=== PATIENT | male | born 1955 | race Caucasian/White ===

== ENCOUNTER 2022-01-31 09:15 | Outpatient (CLI) | payer MEDICARE ==
[2022-01-31 14:32] LABS: BASOPHILS % (AUTO) 0.3 %; EOSINOPHILS # (AUTO) 0.2 10^3/uL (0.0-0.7); EOSINOPHILS % (AUTO) 1.7 %; HCT - HEMATOCRIT 46.6 % (42.0-52.0); HGB - HEMOGLOBIN 14.6 g/dL (14.0-18.0); LYMPHOCYTES # (AUTO) 1.1 10^3/uL (1.5-3.5); LYMPHOCYTES % (AUTO) 11.6 %; MEAN CORPUSCULAR HEMOGLOBIN 28.8 pg (27.0-31.0); MEAN CORPUSCULAR HGB CONC 31.3 g/dL (32.0-36.0); MEAN CORPUSCULAR VOLUME 91.9 fL (80.0-94.0); MEAN PLATELET VOLUME 11.3 fL (7.4-11.4); MONOCYTES # (AUTO) 0.8 10^3/uL (0.0-1.0); MONOCYTES % (AUTO) 8.3 %; NEUTROPHILS # (AUTO) 7.3 10^3/uL (1.5-6.6); NEUTROPHILS % (AUTO) 77.8 %; PLT - PLATELET COUNT 205 10^3/uL (130-450); RED BLOOD COUNT 5.07 10^6/uL (4.70-6.10); RED CELL DISTRIBUTION WIDTH 13.5 % (12.0-15.0); WHITE BLOOD COUNT 9.4 x10^3/uL (4.8-10.8)
[2022-01-31 14:33] LABS: BILIRUBIN,URINE NEGATIVE (NEGATIVE); GLUCOSE, URINE (UA) >=1000 mg/dL (NEGATIVE); KETONES,URINE (UA) NEGATIVE (NEGATIVE); LEUKOCYTE ESTERASE, URINE TRACE (NEGATIVE); NITRITE,URINE POSITIVE (NEGATIVE); OCCULT BLOOD,URINE NEGATIVE (NEGATIVE); PH,URINE 5.5 PH (5.0-7.5); PROTEIN,URINE NEGATIVE (NEGATIVE); UROBILINOGEN,URINE 0.2 (NORMAL) E.U./dL (NORMAL)
[2022-01-31 14:35] LABS: CLARITY,URINE SL. CLOUDY (CLEAR)
[2022-01-31 14:52] LABS: BACTERIA,URINE Moderate /HPF (None Seen); RBC,URINE 0-5 /HPF (0-5); SQUAMOUS EPITHELIAL CELL,UR RARE Squamous (<= Few); WBC CLUMPS,URINE PRESENT; WBC,URINE >25 /HPF (0-3)
[2022-01-31 14:55] LABS: MICROALBUM/CREATININE RATIO,UR 26.2 ug/mg (<30.0); MICROALBUMIN,URINE 2.2 mg/dL (0-300.0)
[2022-01-31 15:34] LABS: ALBUMIN/GLOBULIN RATIO 1.3 (1.0-2.2); ALKALINE PHOSPHATASE 66 IU/L (42-121); ALT ALANINE AMINOTRANSFERASE 13 IU/L (10-60); AST ASPARTATE AMINOTRANSFERASE 18 IU/L (10-42); BILIRUBIN,TOTAL 0.8 mg/dL (0.2-1.0); BUN - BLOOD UREA NITROGEN 17 mg/dL (6-20); CALCIUM 9.4 mg/dL (8.5-10.3); CARBON DIOXIDE - CO2 30 mmol/L (21-32); CHLORIDE 97 mmol/L (101-111); CHOL/HDL RATIO 2.4 (<5.0); CHOLESTEROL 91 mg/dL; CREATININE 1.1 mg/dL (0.6-1.2); GAMMA GLUTAMYL TRANSPEPTIDASE 11 IU/L (8-55); GFR - MDRD 67 (>89); GLUCOSE 161 mg/dL (70-100); HDL CHOLESTEROL 38 mg/dL; LDL CHOLESTEROL,CALCULATED 34 mg/dL; LDL/HDL RATIO 0.9 (<3.6); POTASSIUM 4.7 mmol/L (3.5-5.0); SODIUM 137 mmol/L (135-145); TOTAL PROTEIN 7.2 g/dL (6.7-8.2); TRIGLYCERIDES 94 mg/dL; VLDL CHOLESTEROL 19 mg/dL
[2022-01-31 15:39] LABS: ESTIMATED AVERAGE GLUCOSE 197 mg/dL (70-100); HEMOGLOBIN A1c% 8.5 % (4.27-6.07)
== END 2022-01-31 09:16 | disposition home or self-care (01) ==
LOC: LAB.S 09:15
PROVIDERS: ATTEND Nurse Practitioner Family
DX: E11.9 Type 2 diabetes mellitus without complications (principal); F10.10 Alcohol abuse, uncomplicated
CPT/HCPCS: 36415; 80053; 80061; 81001; 81003; 82043; 82570; 82977; 83036; 83721; 85025; 87077; 87086; 87181

== ENCOUNTER 2022-02-27 08:00 | Outpatient (CLI) | payer MEDICARE | END 2022-02-27 23:59 | disposition home or self-care (01) | LOC: LAB 08:00 | PROVIDERS: ATTEND Physician Assistant | DX: N30.00 Acute cystitis without hematuria (principal) | CPT/HCPCS: 87077; 87086; 87181 ==

== ENCOUNTER → 2022-02-27 | Outpatient (CLI) | payer MEDICARE | LOC: LAB.S 08:00 | PROVIDERS: ATTEND Physician Assistant | DX: N30.00 Acute cystitis without hematuria (principal); E11.9 Type 2 diabetes mellitus without complications | CPT/HCPCS: 82962 ==

== ENCOUNTER 2022-03-05 22:50 | Emergency (ER) | payer MEDICARE ==
[2022-03-05 23:58] LABS: BASOPHILS % (AUTO) 0.2 %; EOSINOPHILS # (AUTO) 0.1 10^3/uL (0.0-0.7); EOSINOPHILS % (AUTO) 0.8 %; HCT - HEMATOCRIT 45.9 % (42.0-52.0); HGB - HEMOGLOBIN 14.5 g/dL (14.0-18.0); LYMPHOCYTES # (AUTO) 0.8 10^3/uL (1.5-3.5); LYMPHOCYTES % (AUTO) 5.8 %; MEAN CORPUSCULAR HEMOGLOBIN 28.6 pg (27.0-31.0); MEAN CORPUSCULAR HGB CONC 31.6 g/dL (32.0-36.0); MEAN CORPUSCULAR VOLUME 90.5 fL (80.0-94.0); MEAN PLATELET VOLUME 10.2 fL (7.4-11.4); MONOCYTES % (AUTO) 7.5 %; NEUTROPHILS # (AUTO) 11.8 10^3/uL (1.5-6.6); NEUTROPHILS % (AUTO) 85.3 %; PLT - PLATELET COUNT 196 10^3/uL (130-450); RED BLOOD COUNT 5.07 10^6/uL (4.70-6.10); RED CELL DISTRIBUTION WIDTH 13.7 % (12.0-15.0); WHITE BLOOD COUNT 13.8 x10^3/uL (4.8-10.8)
--- NOTE | 2022-03-06 00:01 | ED Physician Documentation ---
History of Present Illness - Stated complaint Stated Complaint: ABD & INCREASING CHEST PAIN - Chief complaint Chief Complaint: Abd Pain - History obtained from History obtained from: Patient, Family () - Additonal information Additional information: 66yM with pmh dm, [place] s/p cabg 2016, p/w gradual onset epigastric pain starting after lunch with bloating/pressure sensation that has been constant, radiating to back and up to chest, 09/23 at present. had been feeling normal prior to this. does not feel like prior [place] Review of Systems Ten Systems: 10 systems reviewed and negative Constitutional: denies: Fever Cardiac: reports: Chest pain / pressure Respiratory: denies: Dyspnea GI: reports: Abdominal Pain Musculoskeletal: reports: Back pain PD PAST MEDICAL HISTORY - Allergies Allergies/Adverse Reactions: Allergies Allergy/AdvReac Type Severity Reaction Status Date / Time No Known Drug Allergies Allergy Verified 03/05/22 23:35 PD ED PE NORMAL - Vitals Vital signs reviewed: Yes - General General: Alert and oriented X 3, Well developed/nourished, Other (uncomfortable appearing) - HEENT HEENT: Atraumatic, PERRL, EOMI, Moist mucous membranes - Neck Neck: Supple, no meningeal sign - Cardiac Cardiac: RRR - Respiratory Respiratory: No respiratory distress, Clear bilaterally - Abdomen Abdomen: Other (diffuse discomfort to palpation. mildly distended) - Derm Derm: Normal color, Warm and dry - Extremities Extremities: No deformity, Other (2+ pulses all four extremities) - Neuro Neuro: Alert and oriented X 3, No motor deficit, No sensory deficit - Psych Psych: Normal mood, Normal affect Results - Vitals Vitals: Vital Signs - 24 hr 03/05/22 03/06/22 03/06/22 23:09 00:15 00:22 Temperature 36.8 C Heart Rate 60 65 66 Respiratory 20 15 14 Rate Blood Pressure 176/72 H 169/78 H 169/78 H O2 Saturation 93 96 93 03/06/22 03/06/22 01:15 01:43 Temperature Heart Rate 69 69 Respiratory 13 14 Rate Blood Pressure 157/78 H 163/67 H O2 Saturation 94 94 Oxygen O2 Source Room air - EKG (time done) 2321 Rate: Rate (enter#) (61) Rhythm: NSR - Labs Labs: Laboratory Tests 03/05/22 03/05/22 03/05/22 23:50 23:50 23:50 WBC 13.8 H RBC 5.07 Hgb 14.5 Hct 45.9 MCV 90.5 MCH 28.6 MCHC 31.6 L RDW 13.7 Plt Count 196 MPV 10.2 Neut # (Auto) 11.8 H Lymph # (Auto) 0.8 L [place] # (Auto) 1.0 Eos # (Auto) 0.1 Baso # (Auto) 0.0 Absolute Nucleated RBC 0.00 Nucleated RBC % 0.0 Sodium 135 Potassium 4.2 Chloride 97 L Carbon Dioxide 28 Anion Gap 10.0 BUN 17 Creatinine 1.0 Estimated GFR (MDRD) 75 L Glucose 188 H Calcium 9.0 Total Bilirubin 0.6 AST 16 ALT 13 Alkaline Phosphatase 68 Troponin I High Sens 10.8 Total Protein 7.1 Albumin 3.8 Globulin 3.3 Albumin/Globulin Ratio 1.2 Lipase 26 Nasal Adenovirus (PCR) Nasal B. parapertussis DNA (PCR) Nasal Coronavir 229E PCR Nasal Coronavir HKU1 PCR Nasal Coronavir NL63 PCR Nasal Coronavir OC43 PCR Nasal Enterovir/Rhinovir PCR Nasal Influenza B PCR Nasal Influenza A PCR Nasal Parainfluen 1 PCR Nasal Parainfluen 2 PCR Nasal Parainfluen 3 PCR Nasal Parainfluen 4 PCR Nasal RSV (PCR) Nasal B.pertussis DNA PCR Nasal C.pneumoniae (PCR) Ken Human Metapneumo PCR Nasal M.pneumoniae (PCR) Nasal SARS-CoV-2 (PCR) 03/06/22 00:30 WBC RBC Hgb Hct MCV MCH MCHC RDW Plt Count MPV Neut # (Auto) Lymph # (Auto) [place] # (Auto) Eos # (Auto) Baso # (Auto) Absolute Nucleated RBC Nucleated RBC % Sodium Potassium Chloride Carbon Dioxide Anion Gap BUN Creatinine Estimated GFR (MDRD) Glucose Calcium Total Bilirubin AST ALT Alkaline Phosphatase Troponin I High Sens Total Protein Albumin Globulin Albumin/Globulin Ratio Lipase Nasal Adenovirus (PCR) NOT DETECTED Nasal B. parapertussis DNA (PCR) NOT DETECTED Nasal Coronavir 229E PCR NOT DETECTED Nasal Coronavir HKU1 PCR NOT DETECTED Nasal Coronavir NL63 PCR NOT DETECTED Nasal Coronavir OC43 PCR NOT DETECTED Nasal Enterovir/Rhinovir PCR NOT DETECTED Nasal Influenza B PCR NOT DETECTED Nasal Influenza A PCR NOT DETECTED Nasal Parainfluen 1 PCR NOT DETECTED Nasal Parainfluen 2 PCR NOT DETECTED Nasal Parainfluen 3 PCR NOT DETECTED Nasal Parainfluen 4 PCR NOT DETECTED Nasal RSV (PCR) NOT DETECTED Nasal B.pertussis DNA PCR NOT DETECTED Nasal C.pneumoniae (PCR) NOT DETECTED Ken Human Metapneumo PCR NOT DETECTED Nasal M.pneumoniae (PCR) NOT DETECTED Nasal SARS-CoV-2 (PCR) NOT DETECTED PD Medical Decision Making - ED course ED course: 66yM with pmh cad s/p cabg p/w cp, abd pain, back pain since after lunch today. will undertake aortic dissection study given significant pain and pattern on the body. Patient feeling better s/p pepcid and morphine. incidental findings discussed with patient. plan to f/u with pcp. return precautions given. Departure - Departure Disposition: 01 Home, Self Care Clinical Impression: Abdominal pain, Back pain, Chest pain Condition: Stable Instructions: ED Chest Pain Atypical Unkn Cause Comments: He was seen in the emergency for evaluation of chest pain, abdominal pain and back pain. Here blood work, EKG, chest x-ray, and CTs did not uncover an emergent cause for your symptoms. You should follow-up with your primary care provider regarding your adrenal nodules and right pleural effusion and possible mass, found on CT. Return to the emergency department if you have any new or worsening symptoms or other concerns.
[2022-03-06] MEDS: FAMOTIDINE 20 MG/2 ML VIAL IVP STA (00:07)
[2022-03-06] MEDS: MORPHINE 2 MG/ML CARPUJECT IVP STA (00:09)
[2022-03-06] MEDS ORDERED: iohexoL-300 100 ML VIAL ONE (00:11)
[2022-03-06 00:16] LABS: ALBUMIN 3.8 g/dL (3.2-5.5); ALBUMIN/GLOBULIN RATIO 1.2 (1.0-2.2); BILIRUBIN,TOTAL 0.6 mg/dL (0.2-1.0); POTASSIUM 4.2 mmol/L (3.5-5.0); TOTAL PROTEIN 7.1 g/dL (6.7-8.2)
[2022-03-06] MEDS: SODIUM CHLORIDE 0.9% 1,000 ML IV STA (00:17)
--- NOTE | 2022-03-06 00:36 | XRAY Report ---
PROCEDURE: Chest 1 View X-Ray INDICATIONS: Chest pain TECHNIQUE: One view of the chest was acquired. COMPARISON: None. FINDINGS: Surgical changes and devices: Multiple median sternotomy wires are present. Lungs and pleura: There is a small right pleural effusion with right basilar opacities consistent wi th compressive atelectasis or consolidation. Left lung is clear. No pneumothorax. Mediastinum: Mediastinal contours appear normal. Heart size is normal. Bones and chest wall: No suspicious bony lesions. Overlying soft tissues appear unremarkable. IMPRESSION: 1. Small right pleural effusion with right basilar compressive atelectasis or consolidation. Reviewed by: Wilberto Dent MD on 03/06/2022 12:44 AM PST Approved by: Wilberto Dent MD on 03/06/2022 12:44 AM PST Station ID: [id number]
[2022-03-06 01:25] LABS: B. PARAPERTUSSIS- RESP PCR PAN NOT DETECTED; B. PERTUSSIS- RESP PCR PANEL NOT DETECTED; C. PNEUMONIAE- RESP PCR PANEL NOT DETECTED; CORONAVIRUS 229E-RESP PCR NOT DETECTED; CORONAVIRUS HKU1-RESP PCR NOT DETECTED; CORONAVIRUS NL63-RESP PCR NOT DETECTED; CORONAVIRUS OC43-RESP PCR NOT DETECTED; HUMAN METAPNEUMOVIRUS NOT DETECTED; INFLUENZA A- RESP PCR PANEL NOT DETECTED; INFLUENZA B - RESP PCR PANEL NOT DETECTED; M. PNEUMONIAE- RESP PCR PANEL NOT DETECTED; PARAINFLUENZA VIRUS 1 NOT DETECTED; PARAINFLUENZA VIRUS 2 NOT DETECTED; PARAINFLUENZA VIRUS 3 NOT DETECTED; PARAINFLUENZA VIRUS 4 NOT DETECTED; RHINOVIRUS/ENTEROVIRUS NOT DETECTED; RSV- RESP PCR PANEL NOT DETECTED; SARS-CoV-2 -RESP PCR PANEL NOT DETECTED
--- NOTE | 2022-03-06 02:08 | CT Report ---
PROCEDURE: ANGIO CHEST W/WO INDICATIONS: chest pain radiating to back and abdomen CONTRAST: Omni 300 100ml TECHNIQUE: After the administration of intravenous contrast, 2 mm axial images were acquired from the pulmonary apices to the posterior costophrenic angles during the arterial phase. In addition, 1 mm lung kernel and 5 mm soft tissue kernel reconstructions were performed. 3-dimensional coronal oblique maximum int ensity projection (MIP) reformats, 8 mm axial MIP, and 5 mm coronal and sagittal MPR reformats were t hen performed through the thorax. For radiation dose reduction, the following was used: automated exp osure control, adjustment of mA and/or kV according to patient size. COMPARISON: Concurrent CT angiogram of the abdomen FINDINGS: Image quality: Excellent. Aorta: There is a prosthetic aortic valve. The thoracic aorta is normal in caliber and contour withou t intimal flaps to suggest dissection. There is aortic wall thickening within the descending aorta T here is conventional branching of the aortic arch. The visualized great vessels are normal in calibe r and appear patent. Lower Neck: No lymphadenopathy by size criteria. Thyroid: Visualized thyroid demonstrates no discrete nodules. Axillae: No lymphadenopathy by size criteria. Chest Wall: Unremarkable. Bones: Visualized osseous structures demonstrate no suspicious lesions. Lungs and Airways: The small region of, consolidation is demonstrated posteriorly in the right lower lobe with adjacent linear areas of scarring. The findings likely represent round atelectasis. Mild sc arring and atelectasis also demonstrated elsewhere within the right lung. Minimal dependent atelectas is demonstrated in the left lung. No suspicious pulmonary nodules. The trachea and central airways ar e patent. Pleura: No pneumothorax. There is a small loculated right pleural effusion with associated pleural th ickening. Heart: Heart size is normal. No pericardial effusion. Thoracic Vessels: The pulmonary arteries demonstrate no filling defects to suggest central pulmonary embolism. There is enlargement of the pulmonary arteries, with the main pulmonary artery measuring up to 3.6 cm suggestive of pulmonary arterial hypertension. Mediastinum and Myrna: No lymphadenopathy by size criteria. Esophagus: No wall thickening. No hiatal hernia. Abdomen: Visualized upper abdomen demonstrates an indeterminate right adrenal nodule measuring up to 1.6 cm. IMPRESSION: 1. No evidence of aneurysm or dissection within the thoracic aorta. 2. No evidence of central pulmonary embolism. 3. Small loculated right pleural effusion with associated pleural thickening. 4. Confluent region of consolidation posteriorly in the right lower lobe along the pleural fluid with adjacent areas of scarring. The findings are suggestive of chronic round atelectasis. The differenti al includes pneumonia or a neoplastic mass which is considered less likely. Recommend comparison with prior outside studies or follow-up evaluation in 3 months to demonstrate stability or resolution. Reviewed by: Wilberto Cantu MD on 03/06/2022 2:17 AM PST Approved by: Wilberto Cantu MD on 03/06/2022 2:17 AM PST Station ID: [id number]
--- NOTE | 2022-03-06 02:17 | CT Report ---
PROCEDURE: ANGIO ABDOMEN/PELVIS W INDICATIONS: abd pain CONTRAST: Omni 300 100ml TECHNIQUE: After the administration of intravenous contrast, 2.5 mm thick sections acquired from the diaphragm t o the symphysis. 10 mm maximum-intensity projection (MIP) reformats were then acquired. For radiati on dose reduction, the following was used: automated exposure control, adjustment of mA and/or kV ac cording to patient size. COMPARISON: Concurrent CT angiogram of the thorax FINDINGS: Image quality: Excellent. Aorta: The abdominal aorta is normal in caliber and contour. No intimal flaps to suggest dissection. There is mild scattered atherosclerotic vascular calcification. Mesenteric arteries: Celiac trunk, superior and inferior mesenteric arteries appear patent. There ar e 2 accessory left renal arteries. The renal arteries appear patent bilaterally. Right pelvic arteries: The common, external, and internal iliac arteries appear patent. Mild scatter ed calcified plaque is demonstrated along the internal iliac artery with areas of mild narrowing. The common femoral artery as well as the visualized proximal superficial femoral artery and deep femoral artery appear patent. Left pelvic arteries: The common, external, and internal iliac arteries appear patent. Mild scattere d calcified plaque is demonstrated along the internal iliac artery with areas of mild narrowing. The common femoral artery as well as the visualized proximal superficial femoral artery and deep femoral artery appear patent. Extravascular soft tissues: Lung bases:There is a small loculated right pleural effusion with associated pleural thickening. A c onfluent region of consolidation is demonstrated in the right lower lobe with adjacent linear areas o f scarring suggestive of chronic round atelectasis. Heart: Heart is normal in size. ABDOMEN: Liver: No mass lesion. Gallbladder:The gallbladder is distended with mild pericholecystic fat stranding. No calcified galls tones or definite gallbladder wall thickening. Biliary ducts: No biliary ductal dilatation. Pancreas: Unremarkable. Spleen: Normal in size. Adrenal Glands: There is a right adrenal nodule measuring up to 1.6 cm with indeterminate attenuatio n values. Kidneys and Ureters: No hydronephrosis. Stomach and Bowel: Stomach, small bowel loops, and colon are normal in caliber and wall thickness. T he appendix is normal in appearance. Peritoneum: No abnormal intraperitoneal fluid. No free air. Ventral Wall: No hernia. Abdominal Nodes: No retroperitoneal or mesenteric adenopathy by size criteria. Vessels: Aorta and inferior vena cava are normal in size. PELVIS: Pelvic Organs: Unremarkable. Bladder: Unremarkable. Pelvic Nodes: No enlarged lymph nodes. Miscellaneous: There is a penile prosthesis with a reservoir anteriorly in the left hemipelvis. There is a small fat-containing right inguinal hernia. Bones: Visualized osseous structures demonstrate no suspicious focal lesions. IMPRESSION: 1. No aneurysm or dissection of the abdominal aorta. 2. Indeterminate right adrenal nodule. Further evaluation may obtained with an adrenal protocol CT or MRI if clinically indicated. 3. Distention of the gallbladder with mild pericholecystic fat stranding but no evidence of calcified gallstones or wall thickening. The findings are equivocal but if there is clinical suspicion for cho lecystitis, further evaluation may be obtained with ultrasound. 4. Small loculated pleural effusion within the visualized right lung base. Reviewed by: Wilberto Dent MD on 03/06/2022 2:25 AM PST Approved by: Wilberto Dent MD on 03/06/2022 2:25 AM PST Station ID: [id number]
[2022-03-06 03:06] VITALS: BP 150/65
[2022-03-06] MEDS: iohexoL-300 100 ML VIAL IVP ONE (04:43)
== END 2022-03-06 03:07 | disposition home or self-care (01) ==
LOC: ED 22:50
DX: R10.13 Epigastric pain (principal); R07.9 Chest pain, unspecified; M54.9 Dorsalgia, unspecified
CPT/HCPCS: 36415; 71045; 71275; 74174; 80053; 83690; 84484; 85025; 87633; 93005; 96374; 96375; 99282; 99284; Q9967

== ENCOUNTER 2022-10-05 19:50 | Outpatient (CLI) | payer MEDICARE | END 2022-10-05 23:59 | disposition EMS.NT | LOC: EMS 19:50 | DX: E11.649 Type 2 diabetes mellitus with hypoglycemia without coma (principal); Z79.4 Long term (current) use of insulin ==

== ENCOUNTER 2023-06-15 13:07 | Outpatient (CLI) | payer MEDICARE | END 2023-06-15 23:59 | disposition critical access hospital (66) | LOC: EMS 13:07 | DX: E11.649 Type 2 diabetes mellitus with hypoglycemia without coma (principal); I44.7 Left bundle-branch block, unspecified; R41.82 Altered mental status, unspecified; R61 Generalized hyperhidrosis | CPT/HCPCS: A0425; A0427 ==

== ENCOUNTER 2023-06-15 13:32 | Emergency (ER) | payer MEDICARE ==
--- NOTE | 2023-06-15 14:09 | ED Physician Documentation ---
History of Present Illness - Stated complaint Stated Complaint: LOW BS - Chief complaint Chief Complaint: General - History obtained from History obtained from: Patient, Family, EMS - History of Present Illness Timing: Today Pain level max: 0 Pain level now: 0 - Additonal information Additional information: 67-year-old male, insulin-dependent diabetic. Wears a Dexcom reader that was reading low this morning. He took his usual Toujeo and regular insulin. He states that the Dexcom was reading down to 40. Tried taking glucose packets, but eventually became unconscious. His called 911. Patient was given D50. Immediately woke up. Now asymptomatic. Blood sugar 230 upon arrival. No chest pain. No shortness of breath. No recent illnesses. No nausea or vomiting. No focal neurological deficits. No falls. No head injury. 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 - Past Surgical History Past Surgical History: Yes - Present Medications Home Medications: Ambulatory Orders Medication Instructions Recorded Confirmed Atorvastatin [Lipitor] 06/15/23 Empagliflozin [Jardiance] 06/15/23 Empagliflozin [Jardiance] 06/15/23 06/15/23 Finasteride [Proscar] 06/15/23 Insulin Glargine,Hum.rec.anlog 06/15/23 06/15/23 [Toujeo Max Solostar] Insulin Lispro [Humalog Kwikpen 06/15/23 U-100] Omeprazole 06/15/23 06/15/23 Sertraline [Zoloft] 06/15/23 Spironolactone [Aldactone] 06/15/23 Tamsulosin [Flomax] 06/15/23 Torsemide 06/15/23 buPROPion [Wellbutrin Sr] 06/15/23 carvediloL [Coreg] 06/15/23 - Allergies Allergies/Adverse Reactions: Allergies Allergy/AdvReac Type Severity Reaction Status Date / Time No Known Drug Allergies Allergy Verified 06/15/23 13:47 - Social History Does the pt smoke?: No Smoking Status: Never smoker Does the pt drink ETOH?: Yes ETOH Use: Beer Does the pt have substance abuse?: No - Immunizations Immunizations are current?: Yes PD ED PE NORMAL - Vitals Vital signs reviewed: Yes - General General: Alert and oriented X 3, No acute distress - HEENT HEENT: Moist mucous membranes - Neck Neck: Supple, no meningeal sign - Cardiac Cardiac: RRR, Strong equal pulses - Respiratory Respiratory: No respiratory distress, Clear bilaterally - Abdomen Abdomen: Soft, Non tender, Non distended - Derm Derm: Warm and dry - Extremities Extremities: No edema - Neuro Neuro: Alert and oriented X 3 - Psych Psych: Normal mood, Normal affect Results - Vitals Vitals: Vital Signs - 24 hr 06/15/23 06/15/23 13:36 15:40 Temperature 36.7 C Heart Rate 58 L 61 Respiratory 16 18 Rate Blood Pressure 117/71 123/62 O2 Saturation 93 98 Oxygen O2 Source Room air - Labs Labs: Laboratory Tests 06/15/23 13:47 POC Whole Bld Glucose 232 H PD Medical Decision Making - ED course Complexity details: reviewed results, re-evaluated patient, considered differential, d/w patient, d/w family ED course: Patient ate and drink in the emergency department. No recurrent hypoglycemia. Glucoses monitored with his Dexcom. Asymptomatic. He will continue to be monitored at home with his family. They are comfortable going home at this time. They will return if he worsens. Patient counseled regarding signs and symptoms for which I believe and urgent re-evaluation would be necessary. Patient with good understanding of and agreement to plan and is comfortable going home at this time This document was made in part using voice recognition software. While efforts are made to proofread this document, sound alike and grammatical errors may occur. Departure - Departure Disposition: 01 Home, Self Care Clinical Impression: Hypoglycemia Condition: Good Instructions: ED Diabetes Hypoglycemia Insulin React Follow-Up: Provider,Other [Primary Care Provider] - Comments: Please continue to monitor your blood sugar at home on your Dexcom. Please retu rn if you worsen. Your blood sugar has not dropped low again here. Forms: PCP List Discharge Date/Time: 06/15/23 15:40
[2023-06-15 15:48] VITALS: BP 123/62; O2SAT 98
== END 2023-06-15 15:40 | disposition home or self-care (01) ==
LOC: EDUNIT# → ED 13:32
DX: E10.649 Type 1 diabetes mellitus with hypoglycemia without coma (principal); I50.9 Heart failure, unspecified; Z79.84 Long term (current) use of oral hypoglycemic drugs; Z79.899 Other long term (current) drug therapy
CPT/HCPCS: 99283

== ENCOUNTER 2023-10-30 18:50 | Outpatient (CLI) | payer MEDICARE | END 2023-10-30 23:59 | disposition short-term general hospital (02) | LOC: EMS 18:50 | DX: R41.82 Altered mental status, unspecified (principal); R41.1 Anterograde amnesia; N48.31 Priapism due to trauma; S06.9X1A Unspecified intracranial injury with loss of consciousness of 30 minutes or less, initial encounter; W11.XXXA Fall on and from ladder, initial encounter; Y92.009 Unspecified place in unspecified non-institutional (private) residence as the place of occurrence of the external cause | CPT/HCPCS: A0425; A0427 ==